=== PATIENT | male | born 1960 | race Hispanic/Latino ===

== ENCOUNTER 2017-08-27 18:41 | Inpatient (IN) | payer SELFPAY ==
[~2017-08-27] VITALS: Ht 167.6 cm; Wt 88.0 kg
[2017-08-27] MEDS ORDERED: ACETAMINOPHEN 325 MG TAB PO STA (19:04)
--- NOTE | 2017-08-27 19:51 | Diagnostic Imaging Report ---
EXAMINATION: PA and lateral views of the chest. COMPARISON: None CLINICAL HISTORY: Sepsis DISCUSSION: Lines/tubes: None. Lungs: The lungs are well inflated and clear. No pneumonia or pulmonary edema. Pleura: There is no pleural effusion or pneumothorax. Heart and mediastinum: The cardiomediastinal silhouette is normal. Bones and soft tissues: No acute bony abnormalities. IMPRESSION: No acute cardiopulmonary abnormalities. Signed by: Dr. Johnnie Dior M.D. on 08/27/2017 7:47 PM
[2017-08-27 21:41] LABS: ALANINE AMINOTRANSFERASE 233 IU/L (0-55); ALBUMIN 2.9 g/dL (3.5-5.0); ALBUMIN/GLOBULIN RATIO 0.5 (0.8-2.0); BLOOD UREA NITROGEN 9 mg/dL (7-26); BUN/CREATININE RATIO 11 (6-25); CARBON DIOXIDE 23 mmol/L (22-29); CHLORIDE 106 mmol/L (98-107); CREATININE, SERUM 0.79 mg/dL (0.72-1.25); EST GLOMERULAR FILTRATION RATE > 60 ML/MIN (60-); GLUCOSE 116 mg/dL (74-118); SODIUM 136 mmol/L (136-145)
[2017-08-27 21:42] LABS: ALKALINE PHOSPHATASE 193 IU/L (40-150)
[2017-08-27 21:43] LABS: EOSINOPHILS % 0.1 % (0.0-6.0); HEMATOCRIT 42.7 % (38.2-49.6); HEMOGLOBIN 14.9 g/dL (14.0-18.0); LYMPHOCYTES % 1.6 % (18.0-39.1); MEAN CORPUSCULAR HEMOGLOBIN 32.3 pg (28-32); MEAN CORPUSCULAR HGB CONC 34.9 g/dL (31-35); MEAN CORPUSCULAR VOLUME 92.4 fL (81-99); MONOCYTES % 0.7 % (4.4-11.3); NEUTROPHILS % 4.9 % (38.7-80.0); PLATELET COUNT 191 x10e3/uL (140-360); RED BLOOD COUNT 4.62 x10e6/uL (4.3-5.7); RED CELL DISTRIBUTION WIDTH 13.2 % (11.7-14.4)
[2017-08-27 21:44] LABS: CLARITY,URINE CLEAR (CLEAR); COLOR,URINE YELLOW (YELLOW); LEUKOCYTE ESTERASE ,URINE NEGATIVE (NEGATIVE); NITRITE,URINE NEGATIVE (NEGATIVE); PROTEIN,URINE DIPSTICK 1+ (NEGATIVE)
[2017-08-27 21:45] LABS: BILIRUBIN,URINE NEGATIVE (NEGATIVE); KETONES,URINE NEGATIVE (NEGATIVE); RBC,URINE 21-50 /HPF (0-5); URINE UROBILINOGEN 1 mg/dL (0.2 - 1)
[2017-08-27 22:13] LABS: CREATINE KINASE MB 1.6 ng/mL (0-5.0)
[2017-08-27] MEDS ORDERED: SODIUM CHLORIDE 0.9% 1000ML 1,000 ML IV STA (22:17)
[2017-08-27] MEDS ORDERED: ONDANSETRON HCL INJ 2 MG/ML VIAL IV STA (22:17)
[2017-08-27] MEDS ORDERED: MORPHINE SULFATE 2 MG/ML SYR IV STA (22:17)
[2017-08-27] MEDS ORDERED: PIPER-TAZ 3.375 GM 50 ML IV ONE (22:30)
--- NOTE | 2017-08-27 23:00 | Diagnostic Imaging Report ---
EXAM: CT ABDOMEN AND PELVIS without IV CONTRAST INDICATION: Right-sided pain, hematuria COMPARISON: None TECHNIQUE: The abdomen and pelvis were scanned using a multidetector helical scanner. Coronal and sagittal reformations were obtained. Routine protocol performed. IV Contrast: None Oral Contrast: None CTDIvol has been reviewed. It is below the limits set by the Radiation Protocol Committee (RPC). FINDINGS: LOWER THORAX: There is a 1.2 cm fat-containing round nodule in the left lung base. Bibasilar linear scarring, left greater than right. LIVER: Cirrhotic liver morphology. Several ill-defined hypodensities at the dome of the liver measuring up to 2 cm. BILIARY: Gallbladder wall thickening without distention, likely secondary to portal hypertension. No calcified gallstones. No ductal dilation. SPLEEN: Mild splenomegaly to 13 cm in length. PANCREAS: Incompletely evaluated without IV contrast. ADRENALS: Poorly defined 8 cm mass in the expected location of the right adrenal gland. No left adrenal gland masses. RIGHT KIDNEY: No nephroureterolithiasis or hydronephrosis. LEFT KIDNEY: No nephroureterolithiasis or hydronephrosis. GI TRACT: No wall thickening or obstruction. Normal appendix. VESSELS: Mild atherosclerotic changes of the abdominal aorta without aneurysm. PERITONEUM/RETROPERITONEUM: Trace ascites. LYMPH NODES: Scattered subcentimeter mesenteric lymph nodes. Retroperitoneal lymphadenopathy measuring up to 3.7 x 2.1 cm left periaortic region. REPRODUCTIVE ORGANS: Normal BLADDER: Normal SOFT TISSUES: Normal BONES: No suspicious bone lesions. IMPRESSION: 1. Cirrhosis with evidence of portal hypertension including trace ascites. 2. Ill-defined masses at the dome of the liver are indeterminate and could represent hepatocellular carcinoma or metastatic disease. 3. Ill-defined 8 cm right adrenal gland mass could represent primary adrenal tumor or metastatic disease. The differential also includes exophytic right renal tumor, though difficult to determine source on this noncontrast exam. 4. Retroperitoneal lymphadenopathy consistent with metastatic disease. 5. Fat-containing 1.2 cm round nodule in the left lung base could represent a benign hamartoma. Comparison to prior exams or follow-up is recommended. Given the above findings and suspicion for metastatic malignancy, an MRI of the abdomen with and without IV contrast is recommended to better characterize the liver and right adrenal gland mass. Signed by: Dr. Radha White M.D. on 08/27/2017 10:57 PM
[2017-08-27 23:07] LABS: AMYLASE 90 U/L (25-125); LIPASE 69 U/L (8-78)
[2017-08-27 23:28] LABS: INR 1.16; PROTHROMBIN TIME 13.9 seconds (11.9-14.5)
[2017-08-28] MEDS ORDERED: MORPHINE SULFATE 2 MG/ML SYR IV PRN (01:30)
--- OUTSIDE RECORDS SUMMARY | 2017-08-28 01:34 | XMS REPORT ---
Author Author [facility] Address Unknown Phone Unavailable Care Team Providers Care Television Writer Name Role Phone SHELTON GUERRA Unavailable Unavailable Problems This patient has no known problems. Allergies, Adverse Reactions, Alerts This patient has no known allergies or adverse reactions. Medications This patient has no known medications. Results Test Description Test Time Test Comments Text Results Atomic Results Result Comments CT ABDOMEN/PELVIS WO [place] [address] Patient Name: STEPH VALDES MR #: [id number] : 1960 Age/Sex: 57/M Req #: [id number] Adm Physician: Ordered by: SHELTON GUERRA MD Report #: [id number] Location: ER Room/Bed: Procedure: [id number] CT/CT ABDOMEN/PELVIS WO Exam Date: 08/27/17 Exam Time: 2223 REPORT STATUS: Signed EXAM: CT ABDOMEN AND PELVIS without IV CONTRAST INDICATION: Right-sided pain, hematuria COMPARISON: None TECHNIQUE: The abdomen and pelvis were scanned using a multidetector helical scanner. Coronal and sagittal reformations were obtained. Routine protocol performed. IV Contrast: None Oral Contrast: None CTDIvol has been reviewed. It is below the limits set by the Radiation Protocol Committee (RPC). FINDINGS: LOWER THORAX: There is a 1.2 cm fat -containing round nodule in the left lung base. Bibasilar linear scarring, left greater than right. LIVER: Cirrhotic liver morphology. Several ill- defined hypodensities at the dome of the liver measuring up to 2 cm. BILIARY : Gallbladder wall thickening without distention, likely secondary to portal hypertension. No calcified gallstones. No ductal dilation. SPLEEN: Mild splenomegaly to 13 cm in length. PANCREAS: Incompletely evaluated without IV contrast. ADRENALS: Poorly defined 8 cm mass in the expected location of the right adrenal gland. No left adrenal gland masses. RIGHT KIDNEY: No nephroureterolithiasis or hydronephrosis. LEFT KIDNEY: No nephroureterolithiasis or hydronephrosis. GI TRACT: No wall thickening or obstruction. Normal appendix. VESSELS: Mild atherosclerotic changes of the abdominal aorta without aneurysm. PERITONEUM/RETROPERITONEUM: Trace ascites. LYMPH NODES: Scattered subcentimeter mesenteric lymph nodes. Retroperitoneal lymphadenopathy measuring up to 3.7 x 2.1 cm left periaortic region. REPRODUCTIVE ORGANS: Normal BLADDER: Normal SOFT TISSUES: Normal BONES: No suspicious bone lesions. IMPRESSION: 1. Cirrhosis with evidence of portal hypertension including trace ascites. 2. Ill- defined masses at the dome of the liver are indeterminate and could represent hepatocellular carcinoma or metastatic disease. 3. Ill-defined 8 cm right adrenal gland mass could represent primary adrenal tumor or metastatic disease. The differential also includes exophytic right renal tumor, though difficult to determine source on this noncontrast exam. 4. Retroperitoneal lymphadenopathy consistent with metastatic disease. 5. Fat-containing 1.2 cm round nodule in the left lung base could represent a benign hamartoma. Comparison to prior exams or follow-up is recommended. Given the above findings and suspicion for metastatic malignancy, an MRI of the abdomen with and without IV contrast is recommended to better characterize the liver and right adrenal gland mass. Signed by: Dr. Renée White M.D. on 2017 10:57 PM Dictated By: RENÉE WHITE MD 56 Transcribed By: DILMA on 08/27/172256 COPY TO: SHELTON GUERRA MD CHEST 2 VIEWS [place] [address] Patient Name: STEPH VALDES MR #: [id number] : 1960 Age/Sex: 57/M Req #: [id number] Adm Physician: Ordered by: STEPH GAMEZ MD Report #: [id number] Location: ER Room/Bed: Procedure: [id number] DX/CHEST 2 VIEWS Exam Date: 08/27/17 Exam Time: 1939 REPORT STATUS: Signed EXAMINATION: PA and lateral views of the chest. COMPARISON: None CLINICAL HISTORY: Sepsis DISCUSSION : Lines/tubes: None. Lungs: The lungs are well inflated and clear. No pneumonia or pulmonary edema. Pleura: There is no pleural effusion or pneumothorax. Heart and mediastinum: The cardiomediastinal silhouette is normal. Bones and soft tissues: No acute bony abnormalities. IMPRESSION: No acute cardiopulmonary abnormalities. Signed by: Dr. Paul Rodriguez M.D. on 08/27/2017 7:47 PM Dictated By: PAUL RODRIGUEZ MD 46 Transcribed By: DILMA on 08/27/171946 COPY TO: STEPH GAMEZ MD
[2017-08-28] MEDS ORDERED: ONDANSETRON HCL 4 MG ORAL DISINTEGRATING TAB PO PRN (01:45)
[2017-08-28] MEDS: SODIUM CHLORIDE 0.9% 1000ML 1,000 ML IV SCH ×3 (01:53→15:59)
[2017-08-28] MEDS: MORPHINE SULFATE 2 MG/ML SYR IV PRN ×3 (01:53→19:47)
[2017-08-28 04:00] VITALS: BP 124/72
[2017-08-28 04:05] VITALS: BP 124/72
[2017-08-28] MEDS: PANTOPRAZOLE 40 MG 10ML VIAL IV SCH (07:58)
[2017-08-28 08:00] LABS: BASOPHILS % 0.4 % (0.0-1.0); EOSINOPHILS # (AUTO) 0.1 (0.0-0.4); EOSINOPHILS % 0.9 % (0.0-6.0); HEMATOCRIT 37.5 % (38.2-49.6); HEMOGLOBIN 13.3 g/dL (14.0-18.0); LYMPHOCYTES # (AUTO) 2.1 (1.0-3.2); LYMPHOCYTES % 28.6 % (18.0-39.1); MEAN CORPUSCULAR HEMOGLOBIN 32.4 pg (28-32); MEAN CORPUSCULAR HGB CONC 35.5 g/dL (31-35); MEAN CORPUSCULAR VOLUME 91.2 fL (81-99); MONOCYTES # (AUTO) 0.7 (0.2-0.8); MONOCYTES % 9.7 % (4.4-11.3); NEUTROPHILS # (AUTO) 4.4 (2.1-6.9); NEUTROPHILS % 60.1 % (38.7-80.0); PLATELET COUNT 167 x10e3/uL (140-360); RED BLOOD COUNT 4.11 x10e6/uL (4.3-5.7); RED CELL DISTRIBUTION WIDTH 13.2 % (11.7-14.4)
[2017-08-28 08:10] VITALS: BP 132/77
[2017-08-28 08:23] LABS: ALANINE AMINOTRANSFERASE 188 IU/L (0-55); ALBUMIN 2.4 g/dL (3.5-5.0); ALBUMIN/GLOBULIN RATIO 0.5 (0.8-2.0); ALKALINE PHOSPHATASE 132 IU/L (40-150); ANION GAP 10.1 mmol/L (8-16); BLOOD UREA NITROGEN 7 mg/dL (7-26); BUN/CREATININE RATIO 10 (6-25); CALCIUM 8.6 mg/dL (8.4-10.2); CARBON DIOXIDE 21 mmol/L (22-29); CHLORIDE 110 mmol/L (98-107); CREATINE KINASE 46 IU/L (30-200); CREATININE, SERUM 0.69 mg/dL (0.72-1.25); EST GLOMERULAR FILTRATION RATE > 60 ML/MIN (60-); GLUCOSE 97 mg/dL (74-118); POTASSIUM 4.1 mmol/L (3.5-5.1); SODIUM 137 mmol/L (136-145)
[2017-08-28] MEDS ORDERED: GADOBENATE DIMEGLUMINE 1 ML IV ONE (10:31)
[2017-08-28 12:43] LABS: CHOL/HDL RATIO 4.4 (3.9-4.7)
--- NOTE | 2017-08-28 13:52 | History and Physical ---
PRIMARY CARE PHYSICIAN: Dr. Robin. CHIEF COMPLAINT: Chest and back pain. HISTORY OF PRESENT ILLNESS: This is a 57-year-old man with no medical history, now developing right-sided chest pain and right-sided upper back pain for the past 10 days, went to his primary care doctor, had blood work done but no results obtained. Patient came to the hospital due to persistence of symptoms. Denies any shortness of breath, denies any dizziness. Imaging done showed cirrhosis and liver masses and other findings. Therefore, patient admitted for further evaluation and management. Patient's notes that the patient has been drinking excess alcohol for many years, as much as 24 beers per day, but he has quit for the past 10 years. PAST MEDICAL HISTORY: Excess alcohol use, as much as 24 packs of beer per day, but he has quit for about 10 years now. PAST SURGICAL HISTORY: None. ALLERGIES: PER THE ELECTRONIC MEDICAL RECORDS. FAMILY HISTORY: Patient's brother had cirrhosis secondary to alcohol. SOCIAL HISTORY: The patient is . He has 1 child. No illicits or cigarettes. He quit alcohol about 10 years ago, previously was drinking about 24 beers per day. 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 MEDICATIONS: Per the electronic medical records. Medications reviewed. REVIEW OF SYSTEMS: Denies any dizziness or shortness of breath. VITAL SIGNS: Have been reviewed. PHYSICAL EXAMINATION GENERAL APPEARANCE: A tired-appearing man resting in bed. HEENT: Anicteric. Pupils responsive to light. No oral lesions. CARDIOVASCULAR: Normal S1/S2. LUNGS: Moderate breath sounds. ABDOMEN: Soft, nondistended. He has mild tenderness in the right upper quadrant, equivocal Omalley sign. EXTREMITIES: No edema. SKIN: Dry. PSYCHIATRIC: Flat affect. LABS: Reviewed. ASSESSMENT AND PLAN: This is a 57-year-old man. 1. Fever. Unknown etiology. Will obtain cultures and follow up. 2. Transaminitis. 3. Cirrhosis. Patient has a history of drinking as much as 24 beers per day. He has quit for the past 10 years. We will obtain a hepatitis panel, GI consultation and microneedle biopsy of the liver mass. 4. Liver mass. Will get GI on board first. We will follow up MRI findings first and possibly will need a CT ultrasound-guided biopsy of any liver masses that may be present. Will obtain an alpha-fetoprotein as well as CA19-9 and a CEA level. 5. Retroperitoneal lymphadenopathy likely related to possible liver disease. 6. An 8 cm right adrenal gland mass may represent primary adrenal tumor or metastatic disease, more likely possibly metastatic. Will follow up the MRI imaging first before further evaluation. 7. A 1.2 mm rounded nodule in the left lung base. Possibly a hematoma. 8. Obesity. BMI 31.3. Screen for diabetes and obtain lipid panel. 9. Metabolic acidosis, mild. Will follow. 10. Normocytic anemia. Will follow. 11. Prophylaxis. Will use SCDs and PPI. 12. Disposition. Follow up MRI imaging and consult GI services and follow up other studies. Job#: [id number] EV
--- NOTE | 2017-08-28 14:37 | Diagnostic Imaging Report ---
PROCEDURE: MRI ABDOMEN WOW TECHNIQUE: Axial T1 in and out of phase, axial T2, fat-sat, coronal, T2 with and without sat, axial QASSETT precontrast, axial DWI, and ADC images of the abdomen were performed before the intravenous administration of 18 cc of gadolinium. Axial T1, GRE dynamic images in precontrast, arterial, venous and delayed phases were obtained, as well as a delayed post contrast axial ASSETT. Subtraction images were also performed. COMPARISON: [facility], CT, CT ABDOMEN/PELVIS WO, 08/27/2017, 22:27. INDICATIONS: Cirrhosis, liver and right adrenal lesion on CT FINDINGS: LOWER THORAX: 1.2 cm solid nodule in the left lower lobe (series 10, image 1). LIVER: Normal hepatic size. Nodular contour. No hepatic signal abnormality. * 4 mm T1 hypointense lesion in hepatic segment FANNY at the dome (series 3, image 4, and series 100, image 52), not clearly seen on T2 or DWI images. This lesion has questionable peripheral enhancement on subtraction images (series 100, image 52 and series 11, image 2). * 1.7 x 1.1 cm T2 mildly hyperintense, T2, mildly hypointense lesion in hepatic segment VIII at the dome (series 10, image 54 and series 3, image 24). This lesion shows mild peripheral ring enhancement on postcontrast images (for example series 100, image 102). * Ill-defined 1.1 x 1.1 cm T1 hypointense lesion in hepatic segment V (series 10, image 161), which is not clearly seen on T2 weighted images or DWI images, and shows no significant enhancement on subtraction images. No other focal lesions. BILIARY: No ductal dilatation or filling defect. Gallbladder is unremarkable. PANCREAS: No mass or ductal dilatation. SPLEEN: No splenomegaly. ADRENALS: 7.8 x 5.6 x approximately 5.7 cm heterogeneous T1 mildly hypointense lesion with scattered T1 hyperintense foci, heterogeneously T2 hyperintense lesion in the expected location of the right adrenal gland (series 10, image 71 and series 8, image 17), which shows heterogeneous enhancement as well as restricted diffusion. No signal dropout on out of phase images or fat-suppressed images. Left adrenal gland is unremarkable. KIDNEYS: No hydronephrosis or mass in the imaged portion of the kidneys. PERITONEUM / RETROPERITONEUM: Trace perihepatic ascites (best seen in series 9, image 18). LYMPH NODES: * 1.6 x 2.0 cm structure below the portal vein is with hypointense center may represent an enlarged charles hepatis lymph node (series 10, image 68). * Multiple enlarged left para-aortic lymph nodes (series 10, images 75, 77, 85, 88), which measure 1.1, 2.2, 1.4 and 1.0 cm in short axis, respectively. * An enlarged aortocaval lymph node (series 10, image 85), which measures 1.2 cm in short axis. * Borderline enlarged retrocaval node (series 10, image 78), which measures 1.0 cm in short axis. * Adjacent mildly prominent retrocaval node which measures 0.9 cm in short axis (series 10, image 81). VESSELS: The celiac trunk, superior and inferior mesenteric, and bilateral renal arteries are patent. Large filling defect extending from the distal portal vein to the portal confluence (series 10, images 114-119) and proximal splenic vein. Rest of the splenic vein, portal vein and SMV are patent. BONES AND SOFT TISSUES: No abnormal bone marrow signal. Soft tissues are grossly unremarkable. IMPRESSION: 1. 7.8 cm heterogeneous mass in the expected location of the right adrenal gland, highly suspicious for adrenal cortical carcinoma, given the presence of retroperitoneal adenopathy, lung nodule and hepatic lesions. A malignant pheochromocytoma is a secondary consideration, particularly if there is clinical history of uncontrolled blood pressure, headache, and palpitations. 2. Hepatic lesions are suspicious for metastatic disease. 3. Intra-abdominal and retroperitoneal adenopathy, as described, likely metastatic. 4. 1.2 cm pulmonary nodule, suspicious for metastasis. Contrast-enhanced chest CT is recommended to evaluate for other lesions. 5. Large filling defect in the distal portal vein, extending to the confluence, consistent with thrombus. No significant enhancement is noted, and therefore, tumor thrombus is less likely. 6. Cirrhotic hepatic morphology. Alfonso Morse M.D. Dictated by: Alfonso Morse M.D. on 08/28/2017 at 14:39 Electronically approved by: Alfonso Morse M.D. on 08/28/2017 at 14:39
[2017-08-28 16:12] VITALS: BP 114/61
[2017-08-28 17:05] LABS: CREATINE KINASE 42 IU/L (30-200)
[2017-08-28 20:00] VITALS: BP 120/76
[2017-08-29] VITALS (8 sets, daily range): BP systolic 117–127; BP diastolic 62–78
[2017-08-29] MEDS: MORPHINE SULFATE 2 MG/ML SYR IV PRN ×3 (01:31→19:47)
--- NOTE | 2017-08-29 07:04 | Progress Note ---
DATE: August 29, 2017 TIME: 6:36 a.m. OVERNIGHT: No events. REVIEW OF SYSTEMS: Denies any dizziness or chest pain. PHYSICAL EXAMINATION VITAL SIGNS: Reviewed. GENERAL: A tired-appearing man resting in bed. HEENT: Anicteric. CARDIOVASCULAR: Normal S1 and S2. LUNGS: Moderate breath sounds. ABDOMEN: Soft and nondistended. He has mild tenderness in the right upper quadrant. Equivocal Omalley's sign. EXTREMITIES: No edema. SKIN: Dry. PSYCHIATRIC: Flat affect. LABS: Reviewed. MEDICATIONS: Reviewed. ASSESSMENT: A 57-year-old man with: 1. Fever. 2. Transaminitis. 3. Cirrhosis. 4. Liver mass. 5. Retroperitoneal lymphadenopathy. 6. An 8 cm right adrenal gland mass. 7. A 1.2 mm round nodule in the left lung base. 8. Obesity: Body mass index 31.3. 9. Normocytic anemia. 10. Metabolic acidosis. 11. Distal portal vein thrombosis. PLAN 1. Biopsy of the adrenal mass today. 2. Continue Protonix. 3. Continue pain control. 4. Continue rehydration. 5. MRI revealed a 7.8 cm heterogenous mass in the right adrenal gland suspicious for adrenal cortical carcinoma. Will follow biopsy today. 6. Large filling defect in the distal portal vein consistent with thrombus. 7. Will initiate alpha blockade with phenoxybenzamine 20 mg p.o. b.i.d. Consider initiation of a beta jonas 2 days later. This surgery may need to be postponed until at least 2 days as this could pheochromocytoma related mass as well. I will discuss with Dr. Yeager. Job#: [id number] DEMETRI
[2017-08-29] MEDS: SODIUM CHLORIDE 0.9% 1000ML 1,000 ML IV SCH ×2 (07:17→17:17)
[2017-08-29 07:30] LABS: CREATINE KINASE 27 IU/L (30-200)
[2017-08-29] MEDS: PRAZOSIN HCL 1 MG CAP PO SCH ×2 (09:13→21:02)
[2017-08-29] MEDS: PANTOPRAZOLE 40 MG 10ML VIAL IV SCH (09:13)
--- NOTE | 2017-08-29 12:37 | Diagnostic Imaging Report ---
PROCEDURE: CT scan of the chest WITH intravenous contrast, using standard protocol. TECHNIQUE: The chest was scanned utilizing a multidetector helical scanner from the lung apex through the level of the adrenal glands after the IV administration of 100 cc of Isovue 370. Coronal and sagittal multiplanar reformations were obtained. COMPARISON: MRI of the abdomen with and without contrast 08/28/2017 CT scan of the abdomen without contrast 08/27/2017. INDICATIONS: NODULE FINDINGS: Lines/tubes: None. Lungs and Airways: 1.2 x 1.4 cm round nodule in the periphery of the anterior segment of the left lower lobe corresponds to the abnormality on MRI. Bandlike opacity more posteriorly within the left lower lobe and, to a lesser extent the right lower lobe. 1.1 x 0.9 cm lobulated nodule in the right upper lobe seen on series 6 image 76. No additional suspicious pulmonary nodules. No bronchiectasis. Pleura: The pleural spaces are clear. Heart and mediastinum: Visualized portions of thyroid gland appear normal. Mildly prominent right lower paratracheal mediastinal lymph node measures 1.2 cm short axis. No additional axillary, hilar, or mediastinal lymphadenopathy. Pulmonary outflow tract is of normal caliber. Mild atherosclerotic calcifications of the koi coronary arteries. Soft tissues: No focal soft tissue abnormalities. Abdomen: Partially visualized heterogeneously enhancing mass in the region of the right adrenal gland. 1.8 cm lesion in hepatic segment 8 with adjacent calcification. Centrally necrotic charles hepatis lymphadenopathy. Bulky retroperitoneal lymphadenopathy partially visualized. Filling defect at the confluence of the superior mesenteric vein and splenic vein with extension into the main portal vein. Cirrhotic liver morphology. Bones: No osseous destructive lesion. IMPRESSION: Right upper lobe and left lower lobe pulmonary nodules are suspicious for metastatic disease. Single mildly enlarged right lower paratracheal lymph node is nonspecific and may be reactive or metastatic. Attention on subsequent cross sectional imaging examinations is suggested. Subsegmental atelectasis in the lower lobes, left greater than right. For detailed description of intra-abdominal pathology refer to the report for CT scan of the abdomen and pelvis 08/27/2017 and MRI of the abdomen with and without contrast 08/28/2017 Dictated by: Mert Arriaga M.D. on 08/29/2017 at 12:39 Electronically approved by: Mert Arriaga M.D. on 08/29/2017 at 12:39
[2017-08-29] MEDS ORDERED: DIPHENHYDRAMINE HCL INJ 50 MG/ML VIAL ONE (12:39)
[2017-08-29] MEDS ORDERED: DIPHENHYDRAMINE HCL INJ 50 MG/ML VIAL IV ONE (12:45)
[2017-08-29 14:50] LABS: FREE T4 (FREE THYROXINE) 1.1 ng/dL (0.9-1.8); THYROID STIMULATING HORMONE 3.162 uIU/mL (0.350-4.940)
--- NOTE | 2017-08-29 15:58 | Consultation ---
DATE OF CONSULTATION: ENDOCRINE CONSULTATION This is a patient of Dr. Marte and Dr. Nicholson. Thank you very much for referring this patient. This is a 57-year-old gentleman who is referred to me for evaluation of a right adrenal mass. Patient came to the hospital with history of some chest discomfort on the right side of the chest. On further evaluation of the CT scan, he was found have a huge, 8 cm, adrenal mass with retroperitoneal adenopathy and lung nodules. Patient does not give history of any other major medical problems in the past, but he has not seen a doctor for a long period of time. He has history of weight loss. SOCIAL HISTORY: The patient is also a smoker, and he is an ex-alcoholic. PHYSICAL EXAMINATION GENERAL: Today the patient is alert, awake, a little bit apprehensive. VITALS: Heart rate is around 78. Blood pressure 140/80 mmHg. HEENT: Examination is essentially unremarkable. Thyroid is palpable. Clinically, he is near euthyroid. CHEST: Bilateral vesicular breathing. He has bilateral bronchospasm. CARDIAC: First and 2nd heart sounds. There is no 3rd or 4th heart sound. Ejection systolic murmur, grade 2/6. ABDOMEN: The patient has a distended abdomen. Clinically, he looks near eucortisol. CLINICAL IMPRESSION 1. An 8-cm right adrenal mass, probably metastatic, with retroperitoneal adenopathy and pulmonary lung nodules. 2. 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 Patient's family does not want anything aggressive done at this time, so we will go ahead and do a 24-hour urine VMA, metanephrine, free cortisol and consider adrenal biopsy on followup if the urine tests do not show any evidence of pheochromocytoma. Thanks again for referring this patient. I will be following this patient with you. Job#: [id number]
[2017-08-29] MEDS ORDERED: IOPAMIDOL 370 MG/ML 200 ML INFUS..BTL INJ ONE (19:30)
[2017-08-29] MEDS ORDERED: SODIUM CHLORIDE 0.9% 50ML 50 ML ONE (19:30)
[2017-08-30] VITALS: BP 123/62
[2017-08-30] MEDS: SODIUM CHLORIDE 0.9% 1000ML 1,000 ML IV SCH (03:17)
[2017-08-30 04:00] VITALS: BP 121/59
[2017-08-30] MEDS ORDERED: PANTOPRAZOLE SO40 MG PO (06:42)
[2017-08-30] MEDS ORDERED: SENNA LAX8.6 MG PO (06:42)
[2017-08-30] MEDS ORDERED: ULTRAM50 MG PO (06:42)
[2017-08-30 07:42] VITALS: BP 114/58
--- NOTE | 2017-08-30 07:53 | Discharge Summary ---
PRINCIPAL DIAGNOSES 1. Cirrhosis. 2. Liver mass. 3. Retroperitoneal lymphadenopathy. 4. An 8-cm right adrenal gland mass. 5. A 1.2-mm round nodule in the left lung base. 6. Obesity, body mass index 31.3. 7. Normocytic anemia. 8. Metabolic acidosis. 9. Distal portal vein thrombosis. SECONDARY DIAGNOSIS: Excessive alcohol use. CHIEF COMPLAINT: Chest and back pain. HISTORY OF PRESENT ILLNESS: This is a 57-year-old man with chest and back pain. Please refer to the H and P for further details. HOSPITAL COURSE: The patient was found to have multiple lesions suggestive of malignancy with an 8-cm right adrenal gland mass, a 1.2-mm round nodule at the left lung base and a liver mass. The patient opted not to proceed with any biopsies. He does have excessive alcohol use. Findings suggested portal vein thrombosis and metabolic acidosis. The patient also had normocytic anemia. The patient had obesity with BMI 31.3. The patient opted to be transitioned home for continued care and possible hospice care. DISCHARGE MEDICATIONS: Per electronic medical record and include pain medication. FOLLOWUP 1. With primary care doctor in 1 week. 2. Oncology in 1 week. 3. GI service in 1 week. CHERRY MCGILL MD Job#: [id number]
[2017-08-30] MEDS: PANTOPRAZOLE 40 MG 10ML VIAL IV SCH (08:16)
[2017-08-30] MEDS: PRAZOSIN HCL 1 MG CAP PO SCH (08:16)
[2017-08-30 08:56] VITALS: BP 114/58
[2017-08-30] MEDS: MORPHINE SULFATE 2 MG/ML SYR IV PRN (10:47)
--- NOTE | 2017-08-30 12:03 | Consultation ---
DATE OF CONSULTATION: August 29, 2017 CONSULTATION TO: Dr. Cherry Mcgill Mr. Cash is a 57-year-old male who has been referred to me for evaluation of hepatoma and adrenal mass. The patient had presented with abdominal pain. SOCIAL HISTORY: History of excessive smoking. No history of hepatitis C or B as per the patient and . FAMILY HISTORY: Noncontributory. ALLERGIES: REPORTED NONE. MEDICATIONS AT THIS TIME 1. Sodium chloride. 2. Ondansetron. 3. Morphine. 4. Protonix. 5. Prazosin. REVIEW OF SYSTEMS HEENT: Normal. CARDIAC: History of hypertension. RESPIRATORY: At the present time has pulmonary nodule. GI: Cirrhotic liver with hepatoma with alpha-fetoprotein of 17,016. The patient also has a right adrenal mass. : Right adrenal mass. MUSCULOSKELETAL: Normal. NEUROENDOCRINE: Essentially normal. PHYSICAL EXAMINATION GENERAL: Moderately built male. No adenopathy. HEART: Within normal limits. LUNGS: Clear. ABDOMEN: Obese. Liver is felt 2 inches under the costal margin, firm to hard. EXTERNAL GENITALIA: Normal. RECTAL: Examination deferred. CENTRAL NERVOUS SYSTEM: Essentially normal. LABS: Sodium of 137, potassium 4.1, chloride 110, CO2 21, BUN 7, creatinine 0.6, glucose 97. Hemoglobin 13.3, hematocrit 37.5, white count 7400, platelets 167,000. INR 1.16, bilirubin 0.8, SGOT 159, SGPT 188, alkaline phosphatase 132. IMAGING: Shows the patient to have a cirrhotic liver, 8 cm right adrenal mass, retroperitoneal adenopathy, ascites, portal vein thrombosis, also a pulmonary nodule 1.2 cm. IMPRESSION 1. Cirrhosis of liver leading to hepatoma with alpha-fetoprotein of 17,016. 2. An 8-cm right adrenal mass. 3. Retroperitoneal adenopathy. 4. Ascites. 5. Portal vein thrombosis. 6. Pulmonary nodule 1.2 cm. 7. Hypoalbuminemia. 8. Hyperglobulinemia, possible polyclonal. PLAN, COMMENTS AND SUGGESTIONS 1. Have stave hewer get involved to make sure that this adrenal mass is not pheochromocytoma before we do anything. 2. Hold any biopsies. 3. Terminally ill with hepatoma with a survival possibly less than 2 months. This was discussed frankly with the patient and the , as he and she did ask questions, along with Radha, the RN who is taking care of this patient. 4. On 08/30/2017, I have come to know that the patient is being transferred to hospice. Thank you very much for allowing me to participate in the management of this patient. Job#: [id number] cc:CHERRY MCGILL MD
== END 2017-08-30 11:25 | disposition hospice, home (50) | DRG 432 ==
LOC: ER 18:41 → ERHOLD 08-28 01:30 → EDBD 08-28 01:30 → MED/SURG 08-28 02:33
PROVIDERS: ADMIT Internal Medicine; ATTEND Internal Medicine
DX: K70.31 Alcoholic cirrhosis of liver with ascites (principal); I81 Portal vein thrombosis; E87.2 Acidosis; R16.0 Hepatomegaly, not elsewhere classified; R31.29 Other microscopic hematuria; E27.8 Other specified disorders of adrenal gland; R59.1 Generalized enlarged lymph nodes; R91.8 Other nonspecific abnormal finding of lung field; E66.9 Obesity, unspecified; Z68.31 Body mass index [BMI] 31.0-31.9, adult; D64.9 Anemia, unspecified; K70.11 Alcoholic hepatitis with ascites; B19.20 Unspecified viral hepatitis C without hepatic coma; E88.09 Other disorders of plasma-protein metabolism, not elsewhere classified; F10.21 Alcohol dependence, in remission
CPT/HCPCS: 36415; 71046; 71260; 74176; 74183; 80053; 80061; 80329; 81001; 82105; 82150; 82378; 82530; 82550; 82553; 83036; 83605; 83690; 83835; 84439; 84443; 84484; 84585; 85025; 85610; 85730; 86301; 87040; 87086; 93005; 99284; J1200; J2270; J2543; J7030; Q9967